=== PATIENT | female | born 2000 | race Caucasian/White ===

== ENCOUNTER 2024-07-14 22:51 | Emergency (ER) | payer OTHER ==
[~2024-07-14] VITALS: Ht 160 cm; Wt 83.2 kg
--- NOTE | 2024-07-14 22:58 | ED.PDOC ---
SHAREPOINT ARCHITECT HPI Comments HPI: Poor Historian. 24-year-old female presents to emergency department for vaginal spotting that started 30 minutes prior to arrival. Patient has some associated mild suprapubic discomfort. 10 weeks gestation. Patient's saw her OB Gyne doctor in [place] last week. Last menstrual period May 06, 2024 Past Medical History: Denies Past Surgical History: Denies any allergies Denies any use of drugs or alcohol. Vitals: temperature of 98.3F. pulse of 82, respiratory rate of 16, blood pressure of 144/92, SpO2 of 99%RA REVIEW OF SYSTEMS: CONSTITUTIONAL: Denies acute: fever, diaphoresis, chills, generalized weakness. HEAD: Denies acute: headache, photophobia Eyes: Denies acute: Double vision, vision loss, eye pain, eye discharge. EARS: Denies acute: tinnitus, hearing loss, ear discharge, ear pain, THROAT: Denies acute: sore throat, swelling, difficulty swallowing , pain with swallowing, change in voice. NECK: Denies acute: neck pain, neck swelling, stiff neck. HEART: Denies acute : chest pain, palpitations, LUNGS: Denies acute: SOB, wheezing, cough, hemoptysis ABDOMEN: Denies acute: , Nausea, Vomiting, diarrhea, melena , hematemesis, hematochezia SKIN: Denies acute: rash, redness, lesions, itchiness. EXTREMITIES: Denies acute: calf pain, numbness, tingling, weakness, denies pain in extremity. Denies acute: Low back pain. Neuro: Denies acute: focal neurological deficit, motor or sensory focal neurological deficit, tremors, seizure like activity, confusion, dizziness, change in mental status, loss of bowel or bladder function, cauda equina like symptoms. : Denies acute: dysuria, hematuria, flank pain, increase in urinary frequency. PSYCH: Denies acute: hallucination, suicidal ideation, homicidal ideation. FEMALE: Denies acute: foul odor, unusual discharge. PHYSICAL EXAM: General: -----mild---acute distress, awake and alert. Head: normocephalic, atraumatic. Neck: supple, trachea is midline, no swelling. Throat: Normal phonation. Eyes:, no erythema, no purulent discharge, no proptosis, no icterus. Heart: regular rate, regular rhythm, no significant murmur appreciated. Lungs: no apparent respiratory distress, Able to speak in full sentences. No wheezing, no rhonchi, no crackles. No stridors Clear to auscultation bilaterally. Abdomen: Suprapubic tender to palpation, non distended, soft, no guarding, no rebound, + bowel sounds. Neuro: Awake, Alert, oriented to name, self, situation, follows commands GCS=15. Speech is normal. Skin: no petechia, no purpura, no cyanosis, non-pale, not jaundice. Lower extremities: --no - Pitting edema no deformity, no focal swelling, no calf TTP. Makes eye contact. moves all four extremities. Face: no apparent facial droop. Ambulating in the ED independently. ED COURSE: Time Seen by MD: 22:53 Reviewed Notes: Nurses Notes, Medications, Allergies Allergies: Coded Allergies: NO KNOWN ALLERGIES (Unverified , 07/14/24) Information Source: Patient Past Medical History PAST MEDICAL HISTORY: Denies Surgical History: SURFACE BOSS History: Denies all SURFACE BOSS Hx Family History Family History: Unknown Social History Smoker: Non-Smoker Alcohol: Denies ETOH Use Drugs: Denies Drug Use Lives In: Home Was a procedure done? Was a procedure done?: No Differential Diagnosis (SURFACE BOSS) Vaginal Bleeding: - Complete, - Incomplete, - Inevitable, - Missed, - Threatened, Abruptio Placentae, Blood Loss Anemia, Cervicitis, Dysmenorrhea, Ectopic , Hormonal, Menorrhagia, Menometrorrhagia, Menstrual Bleeding, Myomatous Uterus, PID, Placenta Previa, Precipitous Hct, Trauma, UTI, Vaginitis, Other (Differential diagnosis includes but not limited to DU B, menorrhea, metromenorrhagia, neoplasm, coagulopathy,, trauma, miscarriage, placenta previa, placental abrupti on, ) X-Ray, Labs, Meds, VS Vital Signs Date Time Temp Pulse Resp B/P (MAP) Pulse Ox O2 Delivery O2 Flow Rate FiO2 07/15/24 00:22 98.0 73 16 132/82 (99) 96 98.0 07/14/24 22:59 98.3 82 16 144/92 (109) 99 98.3 Lab Test 07/14/24 23:02 07/14/24 23:00 Range/Units White Blood Count 9.5 4.4-10.8 10^3/uL Red Blood Count 4.46 4.0-5.20 10^6/uL Hemoglobin 13.2 12.2-16.2 g/dL Hematocrit 38.3 36.0-46.0 % Mean Corpuscular Volume 85.9 80.0-100.0 fL Mean Corpuscular Hemoglobin 29.7 28.0-32.0 pg Mean Corpuscular Hemoglobin Concent 34.6 32.0-36.0 g/dL Red Cell Distribution Width 13.1 11.8-14.3 % Platelet Count 311 140-450 10^3/uL Mean Platelet Volume 6.6 L 6.9-10.8 fL Neutrophils (%) (Auto) 57.7 37.0-80.0 % Lymphocytes (%) (Auto) 32.2 10.0-50.0 % Monocytes (%) (Auto) 6.3 0.0-12.0 % Eosinophils (%) (Auto) 3.3 0.0-7.0 % Basophils (%) (Auto) 0.5 0.0-2.0 % Neutrophils # (Auto) 5.5 1.6-8.6 10 ^3/uL Lymphocytes # (Auto) 3.1 0.4-5.4 10 ^3/uL Monocytes # (Auto) 0.6 0-1.3 10 ^3/uL Eosinophils # (Auto) 0.3 0-0.8 10 ^3/uL Basophils # (Auto) 0.1 0-0.2 10 ^3/uL Nucleated Red Blood Cells 0.1 % Sodium Level 137 136-145 mmol/L Potassium Level 4.0 3.5-5.1 mmol/L Chloride Level 105 98-107 mmol/L Carbon Dioxide Level 24 20-31 mmol/L Anion Gap 8 5-15 Blood Urea Nitrogen 16 9-23 mg/dL Creatinine 0.65 0.550-1.02 mg/dL Glomerular Filtration Rate Calc 126 >90 mL/min BUN/Creatinine Ratio 24.6 H 10.0-20.0 Serum Glucose 95 74-106 mg/dL Calcium Level 9.4 8.7-10.4 mg/dL Total Bilirubin 0.2 0.2-1.0 mg/dL Aspartate Amino Transferase (AST) 14 13-40 U/L Alanine Aminotransferase (ALT) 18 7-40 U/L Alkaline Phosphatase 57 46-116 U/L Total Protein 7.2 5.7-8.2 g/dL Albumin 4.6 3.2-4.8 g/dL Beta HCG, Quantitative 946402.0 H 1.5-4.2 mIU/mL Urine Color Light-yellow Yellow Urine Clarity Clear Clear Urine pH 6.5 5.0-9.0 Urine Specific Boyds 1.030 1.001-1.035 Urine Protein Negative Negative Urine Ketones Negative Negative Urine Blood 2+ H Negative /uL Urine Nitrite Negative Negative Urine Bilirubin Negative Negative Urine Urobilinogen Normal Negative mg/dL Urine Leukocyte Esterase Negative Negative /uL Urine RBC 5 0 - 4 /hpf Urine Microscopic WBC 3 0-5 /HPF Urine Squamous Epithelial Cells Few <5 /hpf Urine Bacteria None seen None Seen /hpf Urine Glucose Normal Normal mg/dL [place] [address] Ph: [phone] DIAGNOSTIC IMAGING Diagnostic Imaging Report : [id number] Signed PATIENT: MERRITT SOTELOT: [id number] UNIT: [id number] : 2000 LOC: ER ROOM / BED: / AGE / SEX: 24 / F ADM STATUS: REG ER SERVICE [id number] ORDERING PHYSICIAN: ROB BEDOYA DO PROCEDURE(s): OB4US - OB ULTRASOUND COMP LESS 14WKS REASON: vag bleed ORDER NUMBER(s): [id number], ACCESSION NUMBER(s): [id number] OB ULTRASOUND <14 WEEKS: HISTORY: vag bleed TECHNIQUE: Multiple real-time grayscale sonographic images of the pelvis with duplex Doppler color flow, spectral and M-mode analysis. TRANSDUCERS: COMPARISON: None FINDINGS: There is an apparent bicornuate uterus. There is an intrauterine gestational sac in the right cornua containing a yolk sac and pole. The mean sac diameter measures 40.9 mm corresponding to an estimated gestational age of 9 weeks 3 days. The crown rump length measures 30.4 mm corresponding to an estimated gestational age of 10 weeks 0 days. The mean ultrasound estimated gestational age is 9 weeks 5 days. ERNESTO: 02/11/25. cardiac activity was identified with heart rate of 172 PM. Right ovary measures approximately 3.1 x 2.5 x 2 cm and demonstrates a small cyst measuring up to 2 cm. Normal Doppler color flow. Left ovary measures approximately 2.5 X 1.6 X 2.5 cm and appears unremarkable with normal Doppler color flow. No evidence of pelvic mass or fluid collection. IMPRESSION: Apparent bicornuate uterus. Single live intrauterine in right cornua with estimated gestational age of 9 weeks 5 days. ATED BY: ORESTES HOYOS MD DICTATED DATE/TIME: 07/15/24102 SIGNED BY: ORESTES HOYOS MD SIGNED DATE/TIME: 07/15/24102 CC: Time of 1ST Reevaluation: 00:00 Reevaluation 1ST: Improved Patient Education/Counseling: Diagnosis, Treatment Family Education/Counseling: No Family Present Comments Patient presented with the above HPI.--vaginal bleeding in ----workup was initiated. patient was found with the above mentioned diagnosis. the following medications were ordered: please refer to order lists of meds and tests obtained by myself Dr. Bedoya. Patient ED course and VS have been stabilized. Patient has been reassessed in the ED and remained in a stable condition. Pertinent incidental findings were discussed with the patient and/or family. Patient/family voices understanding and is agreeable with plan. Patient has been observed in the ED adequate length of time to insure improvement/stability. Escalation of care considered: Consideration of escalation to observation or admission Patient was DISCHARGED home in a stable condition. All the reports of any imaging studies that were ordered by myself were reviewed by myself. Departure 1 Departure Time of Disposition: 01:11 Impression: Primary Impression: Vaginal bleeding during Additional Impression: Bicornuate uterus Disposition: HOME / SELF CARE / HOMELESS Condition: Stable Additional Instructions: Additional instructions: You MUST follow-up with your primary care/family doctor in 1 to 2 days. If you are unable to see your primary care/family doctor, please return to our emergency room for re-assessment and re-evaluation in 1 to 2 days. Return to the emergency room here in our facility or to the nearest ER [facility] if your symptoms change or worsen. CONSULTATIONS: you MUST Follow-up for consultation as soon as possible with: Dr.-OB [place] doctor in 1-2 days. Please call for appointment You MUST call the consultants office yourself to make an appointment. You may need to arrange that through your insurance and/or your primary/family doctor. If you are unable to see the independent crop consultant in 1 to 2 days, you must return to our emergency room (or any other ER of your choice) for re-assessment and re- evaluation. Adequate fluid hydration. Continue taking vitamins. Absolute pelvic rest. Please repeat your beta-hCG in 48-72 hours. Repeat pelvic ultrasound in 4-5 days. Below is a copy of your radiological report for follow up: [place] [address] Ph: [phone] DIAGNOSTIC IMAGING Diagnostic Imaging Report : [id number] Signed PATIENT: CHANG SOTELO ACCT: [id number] UNIT: [id number] : 2000 LOC: ER ROOM / BED: / AGE / SEX: 24 / F ADM STATUS: REG ER SERVICE [id number] ORDERING PHYSICIAN: ROB BEDOYA DO PROCEDURE(s): OB4US - OB ULTRASOUND COMP LESS 14WKS REASON: vag bleed ORDER NUMBER(s): [id number], ACCESSION NUMBER(s): [id number] OB ULTRASOUND <14 WEEKS: HISTORY: vag bleed TECHNIQUE: Multiple real-time grayscale sonographic images of the pelvis with duplex Doppler color flow, spectral and M-mode analysis. TRANSDUCERS: COMPARISON: None FINDINGS: There is an apparent bicornuate uterus. There is an intrauterine gestational sac in the right cornua containing a yolk sac and pole. The mean sac diameter measures 40.9 mm corresponding to an estimated gestational age of 9 weeks 3 days. The crown rump length measures 30.4 mm corresponding to an estimated gestational age of 10 weeks 0 days. The mean ultrasound estimated gestational age is 9 weeks 5 days. ERNESTO: 02/11/25. cardiac activity was identified with heart rate of 172 PM. Right ovary measures approximately 3.1 x 2.5 x 2 cm and demonstrates a small cyst measuring up to 2 cm. Normal Doppler color flow. Left ovary measures approximately 2.5 X 1.6 X 2.5 cm and appears unremarkable with normal Doppler color flow. No evidence of pelvic mass or fluid collection. IMPRESSION: Apparent bicornuate uterus. Single live intrauterine in right cornua with estimated gestational age of 9 weeks 5 days. ATED BY: ORESTES HOYOS MD DICTATED DATE/TIME: 07/15/24102 SIGNED BY: ORESTES HOYOS MD SIGNED DATE/TIME: 07/15/24102 CC: Discharged With: Self Critical Care Note Critical Care Time?: No I personally scribed for ROB BEDOYA DO ([email or web address]) on 07/15/24 at 00:45. Electronically submitted by Steve Matamoros ([email or web address]). I personally scribed for ROB BEDOYA DO ([email or web address]) on 07/15/24 at 00:46. Electronically submitted by Steve Matamoros ([email or web address]). ROB BEDOYA DO July 14, 2024 22:58
[2024-07-14 23:14] LABS: Basophils # (auto) 0.1 10 ^3/uL (0-0.2); Basophils % (auto) 0.5 % (0.0-2.0); Eosinophils # (auto) 0.3 10 ^3/uL (0-0.8); Eosinophils % (auto) 3.3 % (0.0-7.0); Hematocrit 38.3 % (36.0-46.0); Hemoglobin 13.2 g/dL (12.2-16.2); Lymphocytes # (auto) 3.1 10 ^3/uL (0.4-5.4); Lymphocytes % (auto) 32.2 % (10.0-50.0); Mean Corpuscular Hemoglobin 29.7 pg (28.0-32.0); Mean Corpuscular Hgb Conc. 34.6 g/dL (32.0-36.0); Mean Corpuscular Volume 85.9 fL (80.0-100.0); Monocytes # (auto) 0.6 10 ^3/uL (0-1.3); Monocytes % (auto) 6.3 % (0.0-12.0); Neutrophils # (auto) 5.5 10 ^3/uL (1.6-8.6); Neutrophils % (auto) 57.7 % (37.0-80.0); Nucleated Red Blood Cells % 0.1 %; Platelet Count (auto) 311 10^3/uL (140-450); Red Blood Cells 4.46 10^6/uL (4.0-5.20); Red Cell Distribution Width 13.1 % (11.8-14.3); White Blood Cell 9.5 10^3/uL (4.4-10.8)
[2024-07-14 23:18] LABS: Urine Bacteria None Seen /hpf (None Seen)
[2024-07-14 23:35] LABS: Alanine Aminotransferase 18 U/L (7-40); Alkaline Phosphatase 57 U/L (46-116); Anion Gap 8 (5-15); Aspartate Aminotransferase 14 U/L (13-40); BUN/Creatinine Ratio 24.6 (10.0-20.0); Blood Urea Nitrogen 16 mg/dL (9-23); Calcium 9.4 mg/dL (8.7-10.4); Carbon Dioxide 24 mmol/L (20-31); Chloride 105 mmol/L (98-107); Glucose 95 mg/dL (74-106); Sodium 137 mmol/L (136-145); Total Protein 7.2 g/dL (5.7-8.2)
[2024-07-14 23:36] LABS: Albumin 4.6 g/dL (3.2-4.8)
[2024-07-14 23:59] LABS: Bilirubin, Total 0.2 mg/dL (0.2-1.0)
[2024-07-15 00:16] LABS: Urine Blood 2+ /uL (Negative); Urine Clarity Clear (Clear); Urine Color Light-Yellow (Yellow); Urine Protein, UAD Negative (Negative); Urine Squamous Epithelial Cell FEW /hpf (<5); Urine Urobilinogen Normal (Negative); Urine WBC 3 /HPF (0-5); Urine pH 6.5 (5.0-9.0)
[2024-07-15 00:22] VITALS: BP 132/82; PULSE 73; RESP 16; TEMP 98; O2SAT 96
--- NOTE | 2024-07-15 01:05 | DVH ---
OB ULTRASOUND <14 WEEKS: HISTORY: vag bleed TECHNIQUE: Multiple real-time grayscale sonographic images of the pelvis with duplex Doppler color f low, spectral and M-mode analysis. TRANSDUCERS: COMPARISON: None FINDINGS: There is an apparent bicornuate uterus. There is an intrauterine gestational sac in the right cornua containing a yolk sac and pole. The mean sac diameter measures 40.9 mm corresponding to an estimated gestational age of 9 weeks 3 day s. The crown rump length measures 30.4 mm corresponding to an estimated gestational age of 10 weeks 0 days. The mean ultrasound estimated gestational age is 9 weeks 5 days. ERNESTO: 02/11/25. cardiac activity was identified with heart rate of 172 PM. Right ovary measures approximately 3.1 x 2.5 x 2 cm and demonstrates a small cyst measuring up to 2 c m. Normal Doppler color flow. Left ovary measures approximately 2.5 X 1.6 X 2.5 cm and appears unremarkable with normal Doppler col or flow. No evidence of pelvic mass or fluid collection. IMPRESSION: Apparent bicornuate uterus. Single live intrauterine in right cornua with estimated gestati onal age of 9 weeks 5 days.
== END 2024-07-15 01:45 | disposition home or self-care (01) ==
LOC: ER 22:55
DX: O20.0 Threatened abortion (principal); O34.01 Maternal care for unspecified congenital malformation of uterus, first trimester; Q51.3 Bicornate uterus; Z3A.10 10 weeks gestation of pregnancy
CPT/HCPCS: 36415; 76801; 80053; 81001; 84702; 85025; 86850; 86900; 86901